=== PATIENT | male | born 1950 | race Caucasian/White ===

== ENCOUNTER 2017-12-10 09:15 | Outpatient (CLI) | payer OTHER ==
[~2017-12-10 09:15] MED LIST: DIOVAN160 M1 PO
[2017-12-24] MEDS ORDERED: ULTRACET PO (10:45)
[2017-12-24] MEDS ORDERED: SURFAK240 MG PO (10:46)
[2017-12-24] MEDS ORDERED: POLY119PG PO (10:46)
== END 2017-12-10 09:22 | disposition home or self-care (01) ==
LOC: RAD 09:15
DX: K40.90 Unilateral inguinal hernia, without obstruction or gangrene, not specified as recurrent (principal)

== ENCOUNTER → 2022-05-15 12:54 | Outpatient (CLI) | payer OTHER ==
[~2022-05-15 12:54] MED LIST changes: +POLY119PG PO; +SURFAK240 MG PO; +ULTRACET PO
== END | disposition home or self-care (01) ==
LOC: LAB 12:54
PROVIDERS: ATTEND Urology
DX: R97.20 Elevated prostate specific antigen [PSA] (principal)

== ENCOUNTER 2022-05-29 07:04 | Outpatient (CLI) | payer OTHER | END 2022-05-29 07:09 | disposition home or self-care (01) | LOC: SONOGRAMA 07:04 | PROVIDERS: ATTEND Urology | DX: D29.1 Benign neoplasm of prostate (principal); R97.20 Elevated prostate specific antigen [PSA] ==

== ENCOUNTER 2023-10-15 07:44 | Outpatient (CLI) | payer OTHER | END 2023-10-15 07:46 | disposition home or self-care (01) | LOC: SONOGRAMA 07:44 | PROVIDERS: ATTEND Urology | DX: N40.1 Benign prostatic hyperplasia with lower urinary tract symptoms (principal); N42.31 Prostatic intraepithelial neoplasia; R97.20 Elevated prostate specific antigen [PSA] ==